=== PATIENT | male | born 1935 | race Caucasian/White ===

== ENCOUNTER 2017-02-12 | Emergency (ER) | payer MEDICARE ==
--- NOTE | 2017-02-12 19:59 | ER ---
ADMIT: 02/12/2017 RM/LOC: ER [facility] MR#: [id number] [address] [id number] [address] [facility] [place] [address] Emergency Room Report SEX: M AGE: 81 : 1935 DATE: 02/12/2017 HISTORY OF PRESENT ILLNESS: The patient is an 81-year-old male with a past medical history of CVA, cardiac stent, hypertension, came to the ER with chief complaint of right 1st metatarsophalangeal swelling on the right foot and also erythema and tenderness for the last 3 hours. The patient denies any trauma and denies similar symptoms in the past. Pain is continuous and moderate to severe and increases with movement of the leg. The patient was afebrile in the ER, with temperature of 98.1, heart rate of 83, and blood pressure was stable. The patient tried to keep the right foot immobile. PHYSICAL EXAMINATION: HEAD and NECK: Noncontributory and negative. CHEST: Clear bilaterally. HEART: Normal heart sounds. ABDOMEN: Soft. EXTREMITIES: Range of motion of all the extremities are normal except for the right 1st toe because of the pain. There is no skin laceration. The patient has normal range of motion in right ankle. In the right medial metatarsophalangeal joint, there is a mild swelling about 1 inch x 1 inch and erythema in the area without any fluctuations. I did feel any warmth in the area. Area is also very tender. The rest of the physical exam is noncontributory and negative. LABORATORY DATA AND IMAGING: The patient's right foot x-ray did not show any acute changes or punched-out lesions or fractures or any signs of osteomyelitis. ESR was 8, with white blood cells of 10,000, and uric acid of 6.4. The patient was given naproxen and Percocet in the ER for controlling the pain, pain was moderately controlled. The patient was discharged to home with prescription for naproxen and advised to follow up with the primary doctor for possible aspiration of the joint as needed. At this stage, septic arthritis is not at the top of our differentials, gouty arthritis as well as other times of arthritis are at the top of our differentials. The patient was discharged to home with diagnosis of right foot pain, questionable gouty arthritis of the right foot. Neeraj De León MD/ sánchez JOB #: [id number] CC: Neeraj De León MD, Attending Physician Maico Pearson MD, Family Physician
== END 2017-02-12 03:00 | disposition home or self-care (01) ==
LOC: ER
DX: M79.671 Pain in right foot (principal); I10 Essential (primary) hypertension; Z86.73 Personal history of transient ischemic attack (TIA), and cerebral infarction without residual deficits; Z79.899 Other long term (current) drug therapy; Z88.1 Allergy status to other antibiotic agents; Z95.5 Presence of coronary angioplasty implant and graft; Z95.0 Presence of cardiac pacemaker